=== PATIENT | female | born 1980 | race Caucasian/White ===

== ENCOUNTER 2023-11-27 17:57 | Emergency (ER) | payer OTHER ==
[2023-11-27 18:06] VITALS: BP 98/61; PULSE 62; RESP 18; TEMP 97.7; BMI 30.9
[2023-11-27] MEDS ORDERED: ACETAMINOPHEN INJECTION 100 ML ONE (19:19)
[2023-11-27] MEDS ORDERED: FAMOTIDINE 20 MG/50 ML IVPB 20 MG/50 ML MG IVPB ONE (19:19)
[2023-11-27] MEDS ORDERED: MAG HYDROX/AL HYDROX/SIMETH 30 ML UNIT-DOSE CUP ONE (19:19)
[2023-11-27 19:37] LABS: HEMATOCRIT 37.9 % (32.4-45.2); HEMOGLOBIN 13.2 GM/dL (10.7-15.3); MCH 29.3 pg (25.7-33.7); MCHC 34.8 g/dl (32.0-36.0); MEAN CELL VOLUME 84.2 fl (80-96); MEAN PLT VOLUME 8.7 fl (7.5-11.1); PLATELET COUNT 266 10^3/uL (134-434); RDW 14.1 % (11.6-15.6); WHITE BLOOD COUNT 8.2 K/mm3 (4.0-10.0)
[2023-11-27] MEDS: MAG HYDROX/AL HYDROX/SIMETH -MYLANTA- ORAL SUSPENSION PO ONE (19:42)
[2023-11-27] MEDS: FAMOTIDINE 20 MG/50 ML IVPB 20 MG/50 ML MG IVPB ONE (19:42)
[2023-11-27] MEDS: ACETAMINOPHEN 1000 MG/100 ML BAG IVPB ONE (19:42)
[2023-11-27 19:44] LABS: INR 0.96 (0.83-1.09); PROTHROMBIN TIME (PATIENT) 10.9 SEC (9.7-13.0)
[2023-11-27 19:47] LABS: ACTIVATED PTT 29.7 SECONDS (25.2-36.5)
[2023-11-27 20:21] LABS: POTASSIUM 4.5 mmol/L (3.5-5.1)
[2023-11-27 20:22] LABS: ALBUMIN 3.4 g/dl (3.4-5.0); BLOOD UREA NITROGEN 7.6 mg/dL (7-18); CALCIUM 9.2 mg/dL (8.5-10.1)
[2023-11-27 20:26] LABS: CREATININE 1.1 mg/dL (0.55-1.3)
[2023-11-27 20:28] LABS: BILIRUBIN,TOTAL 0.4 mg/dL (0.2-1); TOT PROT 6.2 g/dl (6.4-8.2)
[2023-11-27] MEDS: SODIUM CHLORIDE 1,000 ML IV STA (21:11)
== END 2023-11-27 22:53 | disposition home or self-care (01) ==
LOC: JER 17:57
PROC: 3E033GC Introduction of Other Therapeutic Substance into Peripheral Vein, Percutaneous Approach (ICD-10-PCS; principal; 2023-11-27)
PROC: 3E033NZ Introduction of Analgesics, Hypnotics, Sedatives into Peripheral Vein, Percutaneous Approach (ICD-10-PCS; 2023-11-27)
PROC: 3E0337Z Introduction of Electrolytic and Water Balance Substance into Peripheral Vein, Percutaneous Approach (ICD-10-PCS; 2023-11-27)
DX: R19.7 Diarrhea, unspecified (principal); K59.00 Constipation, unspecified; Z20.822 Contact with and (suspected) exposure to COVID-19
CPT/HCPCS: 36415; 80053; 84484; 85027; 85610; 85730; 86850; 86900; 86901; 87635; 93005; 93010; 99284-25; J0131

== ENCOUNTER 2024-01-25 09:26 | Observation (INO) | payer OTHER ==
[2024-01-25 10:35] LABS: BASO % 0.8 % (0-2.0); EOS % 2.7 % (0-4.5); HEMATOCRIT 41.8 % (32.4-45.2); HEMOGLOBIN 14.4 GM/dL (10.7-15.3); MCH 29.3 pg (25.7-33.7); MCHC 34.5 g/dl (32.0-36.0); MEAN PLT VOLUME 9.5 fl (7.5-11.1); MONO % 6.3 % (3.8-10.2); NEUT % 60.2 % (42.8-82.8); PLATELET COUNT 267 10^3/uL (134-434); RBC 4.92 M/mm3 (3.60-5.2); RDW 13.5 % (11.6-15.6); WHITE BLOOD COUNT 8.4 K/mm3 (4.0-10.0)
[2024-01-25 10:39] LABS: INR 1.06 (0.83-1.09)
[2024-01-25 10:42] LABS: ACTIVATED PTT 30.2 SECONDS (25.2-36.5)
[2024-01-25 11:02] LABS: POTASSIUM 3.9 mmol/L (3.5-5.1)
[2024-01-25 11:03] LABS: CALCIUM 8.8 mg/dL (8.5-10.1)
[2024-01-25 11:04] LABS: ALBUMIN 3.7 g/dl (3.4-5.0); MAGNESIUM 1.9 mg/dL (1.8-2.4)
[2024-01-25 11:09] LABS: TOT PROT 6.5 g/dl (6.4-8.2)
[2024-01-25] MEDS ORDERED: ACETAMINOPHEN INJECTION 100 ML ONE (11:15)
[2024-01-25] MEDS: ACETAMINOPHEN 1000 MG/100 ML BAG IVPB ONE (11:26)
[2024-01-25] MEDS ORDERED: ASPIRIN 81 MG CHEWABLE TABLETS ONE (13:00)
[2024-01-25] MEDS: ASPIRIN 81 MG CHEWABLE TABLETS PO ONE (13:19)
[2024-01-25 15:01] VITALS: BMI 31.2
[2024-01-25 17:40] LABS: URINE APPEARANCE CLEAR; URINE BILIRUBIN NEGATIVE (NEGATIVE); URINE COLOR YELLOW; URINE GLUCOSE (UA) NEGATIVE (NEGATIVE)
[2024-01-25 17:41] LABS: URINE KETONE NEGATIVE (NEGATIVE)
[2024-01-25 17:42] LABS: PH,URINE 6.5 (5.0-8.0); URINE LEUK ESTERASE NEGATIVE (NEGATIVE); URINE NITRITE NEGATIVE (NEGATIVE); URINE PROTEIN NEGATIVE (NEGATIVE)
[2024-01-26 07:59] LABS: BASO % 0.7 % (0-2.0); EOS % 2.9 % (0-4.5); HEMATOCRIT 39.9 % (32.4-45.2); HEMOGLOBIN 13.4 GM/dL (10.7-15.3); LYMPH % 39.6 % (8-40); MCH 28.9 pg (25.7-33.7); MCHC 33.5 g/dl (32.0-36.0); MEAN CELL VOLUME 86.1 fl (80-96); MEAN PLT VOLUME 9.6 fl (7.5-11.1); MONO % 4.6 % (3.8-10.2); NEUT % 52.2 % (42.8-82.8); PLATELET COUNT 223 10^3/uL (134-434); RBC 4.64 M/mm3 (3.60-5.2); WHITE BLOOD COUNT 8.3 K/mm3 (4.0-10.0)
[2024-01-26 08:20] LABS: POTASSIUM 4.1 mmol/L (3.5-5.1)
[2024-01-26 08:21] LABS: CALCIUM 8.8 mg/dL (8.5-10.1)
[2024-01-26 08:22] LABS: BLOOD UREA NITROGEN 8.9 mg/dL (7-18)
[2024-01-26 08:25] LABS: CREATININE 1.1 mg/dL (0.55-1.3)
[2024-01-26] MEDS ORDERED: methaDONE HCL 40 MG DISPERSABLE TABLET PO ONE (15:00)
[2024-01-26 15:10] LABS: URINE AMPHETAMINES NEGATIVE (NEGATIVE); URINE BARBITURATES NEGATIVE (NEGATIVE)
[2024-01-26 15:11] LABS: COCAINE, UR POSITIVE (NEGATIVE); PHENCYCLIDINE,URINE NEGATIVE (NEGATIVE); URINE BENZODIAZEPINES POSITIVE (NEGATIVE)
[2024-01-26 15:13] LABS: METHADONE, UR POSITIVE (NEGATIVE); OPIATES, URI POSITIVE (NEGATIVE)
[2024-01-26] MEDS: SODIUM CHLORIDE 1,000 ML IV STA (16:41)
[2024-01-26] MEDS: POLYETHYLENE GLYCOL (HEALTHYLAX) 3350 17 GM PACKET PO SCH (17:32)
[2024-01-26] MEDS: methaDONE HCL 40 MG DISPERSABLE TABLET PO ONE (17:32)
[2024-01-26] MEDS: LEVOTHYROXINE NA 50 MCG TABLET (FP) PO SCH (17:32)
[2024-01-26] MEDS: HYDROCORTISONE ACETATE 25 MG/SUPP.RECT RC SCH (21:23)
[2024-01-26] MEDS: DEXAMETHASONE 0.5 MG TABLET PO ONE (22:00)
[2024-01-27 08:40] LABS: BASO % 0.6 % (0-2.0); EOS % 1.2 % (0-4.5); HEMOGLOBIN 13.5 GM/dL (10.7-15.3); LYMPH % 23.6 % (8-40); MCH 29.3 pg (25.7-33.7); MCHC 33.9 g/dl (32.0-36.0); MEAN CELL VOLUME 86.5 fl (80-96); MEAN PLT VOLUME 9.8 fl (7.5-11.1); MONO % 3.5 % (3.8-10.2); NEUT % 71.1 % (42.8-82.8); PLATELET COUNT 231 10^3/uL (134-434); RBC 4.62 M/mm3 (3.60-5.2); RDW 13.1 % (11.6-15.6); WHITE BLOOD COUNT 8.8 K/mm3 (4.0-10.0)
[2024-01-27] MEDS: methaDONE HCL 40 MG DISPERSABLE TABLET PO SCH (08:40)
[2024-01-27 09:06] LABS: POTASSIUM 4.4 mmol/L (3.5-5.1)
[2024-01-27 09:24] LABS: ALBUMIN 3.7 g/dl (3.4-5.0); CALCIUM 9.1 mg/dL (8.5-10.1)
[2024-01-27 09:27] LABS: CREATININE 0.9 mg/dL (0.55-1.3)
[2024-01-27 09:29] LABS: BILIRUBIN,TOTAL 0.4 mg/dL (0.2-1); TOT PROT 6.5 g/dl (6.4-8.2)
[2024-01-27] MEDS: MAGNESIUM HYDROX 2400MG/30ML ORAL SUSPENSION 30 ML CUP PO ONE (12:16)
[2024-01-27] MEDS: POLYETHYLENE GLYCOL (HEALTHYLAX) 3350 17 GM PACKET PO SCH (13:44)
[2024-01-27 15:51] VITALS: BP 133/69; PULSE 52; RESP 16; TEMP 98.2
== END 2024-01-27 17:41 | disposition home or self-care (01) ==
LOC: JER 09:26 → JERBED 12:40 → UNDOADMOB 12:40 → INTOOBSV 12:40 → JERBED 13:55 → J4W 14:36
PROVIDERS: ADMIT Internal Medicine; ATTEND Internal Medicine
PROC: 3E033NZ Introduction of Analgesics, Hypnotics, Sedatives into Peripheral Vein, Percutaneous Approach (ICD-10-PCS; principal; 2024-01-25)
PROC: 3E0337Z Introduction of Electrolytic and Water Balance Substance into Peripheral Vein, Percutaneous Approach (ICD-10-PCS; 2024-01-25)
DX: R00.1 Bradycardia, unspecified (principal); K62.5 Hemorrhage of anus and rectum; E03.9 Hypothyroidism, unspecified; K64.8 Other hemorrhoids; K58.1 Irritable bowel syndrome with constipation; E27.8 Other specified disorders of adrenal gland; F41.9 Anxiety disorder, unspecified; F19.90 Other psychoactive substance use, unspecified, uncomplicated; R79.89 Other specified abnormal findings of blood chemistry
CPT/HCPCS: 0241U-QW; 36415; 71045-TC-FY; 74177-TC; 80048; 80053; 80307; 81003; 82088; 82272; 82384; 82533; 83735; 84436; 84439; 84443; 84481; 84484; 84703; 85025; 85610; 85730; 86850; 86900; 86901; 87086; 93005; 93010; 93306-TC; 96361; 96374; 99285-25; G0378; J0131; Q9967